=== PATIENT | female | born 1955 | race Hispanic/Latino ===

== ENCOUNTER 2016-11-02 07:55 | Day surgery (SDC) | payer BC ==
[~2016-11-02 07:55] MED LIST: DIPRIVAN 10 MG/ML IV ONE
--- NOTE | 2016-11-02 08:44 | Anesthesia Day of Surgery ---
Anesthesia Day of Surgery - Day of Surgery Patient Examined: Yes Patient H&P Reviewed: Yes Patient is NPO: Yes
--- NOTE | 2016-11-02 08:48 | Anesthesia Consultation ---
Anesthesia Consult and Med Hx - Airway Anesthetic Teeth Evaluation: Good, Bridges (upper) ROM Head & Neck: Adequate Mental/Hyoid Distance: Adequate Mallampati Class: Class II Intubation Access Assessment: Probably Good - Pulmonary Exam CTA: Yes - Cardiac Exam Cardiac Exam: RRR - Pre-Operative Health Status ASA Pre-Surgery Classification: ASA2 Proposed Anesthetic Plan: MAC - Pulmonary Hx Smoking: No Hx Respiratory Symptoms: Yes (spot on lung) Hx Pneumonia: Yes (within last yeat) - Cardiovascular System Hx Hypertension: Yes - Central Nervous System Hx Neuromuscular Disorder: Yes (OA) - Endocrine Hx Renal Disease: Yes (abnormal labs with chronic kidney infections) Hx Non-Insulin Dependent Diabetes: Yes (has neuropathy) - Additional Comments Anesthesia Medical History Comments: NPO after MN. Pt has hx of PONV. Hx of HTN , spot on lung and diabetes. 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
[2016-11-02] MEDS ORDERED: VERSED ONE (09:27)
[2016-11-02] MEDS ORDERED: WATER FOR IRRIG STERILE IR ONE (09:32)
[2016-11-02] MEDS ORDERED: XYLOCAINE 1% 20 mL ONE (09:39)
[2016-11-02] MEDS ORDERED: LIDOCAINE VISCOUS 2% ONE (09:39)
[2016-11-02] MEDS ORDERED: HURRICAINE ONE 20% TOPICAL SPRAY MM ×2 (09:40→09:50)
[2016-11-02] MEDS ORDERED: NEO SYNEPHRINE ONE (09:40)
[2016-11-02] MEDS ORDERED: LIDOCAINE VISCOUS 2% MM ONE (09:45)
[2016-11-02] MEDS ORDERED: ROBINUL ONE (10:00)
[2016-11-02] MEDS ORDERED: XYLOCAINE 1% 20 mL INFILTRATI ONE (10:20)
--- NOTE | 2016-11-02 10:42 | Procedure Note ---
Date of procedure: 11/02/16 Pre-op diagnosis: rml pneumonia persistent Post-op diagnosis: same Procedure: bronch w fluoro Anesthesia: MAC Surgeon: JESSENIA BARNETT Estimated blood loss: none Specimen disposition: to lab Condition: stable Disposition: same day
[2016-11-02] MEDS ORDERED: NACL 0.9% 1000 ML 1,000 ML IV SCH (11:00)
[2016-11-02 11:55] VITALS: BP 123/62
--- NOTE | 2016-11-02 12:07 | Post Anesthesia Evaluation ---
- Post Anesthesia Evaluation Patient Participated: Yes Airway Patent: Yes Stable Respiratory Function: Yes Nausea/Vomiting: No Temp > 96.8F: Yes Pain Manageable: Yes Adequeate Hydration: Yes Anesthesia Complications: No Block Receding Appropriately: Not Applicable Patient on Ventilator: No
--- NOTE | 2016-12-03 22:08 | Operative Report ---
PROCEDURE: Bronchoscopy. INDICATION: Abnormal . DESCRIPTION OF PROCEDURE: With informed consent, the procedure was performed. Via the right nares, endoscope was introduced. No upper airway or endotracheal lesions were noted. The patient had good abduction and adduction of vocal cords. No endobronchial lesions were noted. In the right middle lobe, mucus plug was noted. This was aspirated with a lot of purulent material aspirated. The patient tolerated the procedure well. See nurse's note and anesthesia note in reference to medications and vital signs during procedure. SPECIMEN: Specimen sent for cytology from brushing and washing and for C and S from washing. I spoke to patient and her daughter. JOB# [id number] LEVI/JOI
== END 2016-11-02 07:56 | disposition home or self-care (01) ==
LOC: GIO 07:55
PROVIDERS: ATTEND Specialist
DX: J98.4 Other disorders of lung (principal); M19.90 Unspecified osteoarthritis, unspecified site; E11.40 Type 2 diabetes mellitus with diabetic neuropathy, unspecified; E11.22 Type 2 diabetes mellitus with diabetic chronic kidney disease; I12.9 Hypertensive chronic kidney disease with stage 1 through stage 4 chronic kidney disease, or unspecified chronic kidney disease; N18.9 Chronic kidney disease, unspecified; E78.5 Hyperlipidemia, unspecified; G43.909 Migraine, unspecified, not intractable, without status migrainosus; Z87.01 Personal history of pneumonia (recurrent); Z98.890 Other specified postprocedural states; Z90.710 Acquired absence of both cervix and uterus; Z98.51 Tubal ligation status; Z79.899 Other long term (current) drug therapy; Z79.84 Long term (current) use of oral hypoglycemic drugs; Z88.1 Allergy status to other antibiotic agents; Z88.0 Allergy status to penicillin; Z88.2 Allergy status to sulfonamides; Z81.8 Family history of other mental and behavioral disorders; Z83.3 Family history of diabetes mellitus
CPT/HCPCS: 31623; 82962; 87102; 87116; 87220; 88104; 88112; J2250; J2704; J7030; J2370